=== PATIENT | male | born 1930 | race Caucasian/White ===

== ENCOUNTER 2017-03-28 18:59 | Inpatient (IN) | payer MEDICARE, OTHER ==
[~2017-03-28] VITALS: Ht 170.2 cm; Wt 74.5 kg
[~2017-03-28 18:59] MED LIST: CODEINE PO; DIAZ5TAB4 PO; PRED10TA PO
[2017-03-28] MEDS ORDERED: PANTOPRAZOLE 80 MG in SODIUM CHLORIDE 0.9% 50 ML IVPB ONE (19:25)
[2017-03-28] MEDS ORDERED: SODIUM CHLORIDE FLUSH 10ML SYR IVF ONE (19:30)
[2017-03-28 19:54] LABS: HEMATOCRIT 28.7 % (39.2-51.8); HEMOGLOBIN 9.5 g/dL (13.7-18.0); WHITE BLOOD COUNT 9.8 x10^3/uL (3.4-10)
[2017-03-28] MEDS ORDERED: ACET1TAB39 PO (19:57)
[2017-03-28] MEDS ORDERED: ASPI-650 PO (19:59)
[2017-03-28 20:13] LABS: BLOOD UREA NITROGEN 72 mg/dL (7-18)
[2017-03-28 20:18] LABS: IS PT STATUS REG ER OR PRE ER? YES
[2017-03-28 20:24] LABS: DIFF TOTAL CELLS COUNTED 100 CELL DIFF
[2017-03-28 20:34] LABS: ANISOCYTOSIS 1+; OVALOCYTES 1+; SCHISTOCYTES 1+; TARGET CELLS 1+; VERIFY COUNTS? YES
[2017-03-28 20:35] LABS: LARGE PLATELETS 1+
[2017-03-28] MEDS: PANTOPRAZOLE 80 MG in SODIUM CHLORIDE 0.9% 100 ML IV SCH (20:37)
[2017-03-28] MEDS ORDERED: ACETAMINOPHEN 325 MG TABLET PO PRN (21:30)
[2017-03-28] MEDS ORDERED: POLYETHYLENE GLYCOL 17 GM PACKET PO PRN (21:30)
[2017-03-28] MEDS ORDERED: DOCUSATE 100 MG CAPSULE PO PRN (21:30)
[2017-03-28] MEDS ORDERED: ONDANSETRON 2MG/ML, 2ML IVPush PRN (21:30)
[2017-03-28] MEDS ORDERED: CEFTRIAXONE PMX 1GM/50ML 50 ML ONE (21:35)
[2017-03-28] MEDS ORDERED: ACETAMINOPHEN 325 MG TABLET ONE (21:36)
[2017-03-28] MEDS: CEFTRIAXONE PMX 1GM/50ML 50 ML IV SCH (21:46)
[2017-03-28] MEDS: SODIUM CHLORIDE 0.9% 1,000 ML IV SCH (21:46)
[2017-03-29] MEDS: DOXYCYCLINE 100 MG in DEXTROSE 5% 250 ML IV SCH ×2 (00:04→11:38)
[2017-03-29 02:10] VITALS: BP 143/76
[2017-03-29] MEDS: NICOTINE 7 MG/24 HR PATCH.TD24 TD SCH ×2 (02:40→21:30)
[2017-03-29] MEDS: SODIUM CHLORIDE 0.9% 1,000 ML IV SCH (02:41)
[2017-03-29] MEDS: PANTOPRAZOLE 80 MG in SODIUM CHLORIDE 0.9% 100 ML IV SCH ×4 (02:44→21:54)
[2017-03-29 03:32] LABS: POTASSIUM,URINE RANDOM 74 mmol/L
[2017-03-29 05:43] LABS: HEMATOCRIT 26.9 % (39.2-51.8); HEMOGLOBIN 9.1 g/dL (13.7-18.0); WHITE BLOOD COUNT 9.7 x10^3/uL (3.4-10)
[2017-03-29 06:32] LABS: ASPARTATE AMINO TRANSFERASE 156 U/L (15-37); BLOOD UREA NITROGEN 71 mg/dL (7-18)
[2017-03-29 06:34] LABS: IS PT STATUS REG ER OR PRE ER? NO
[2017-03-29 08:36] VITALS: BP 107/60
[2017-03-29] MEDS ORDERED: hydrALAzine 20 MG/ML, 1ML IV PRN (09:00)
[2017-03-29] MEDS ORDERED: [UNRECOGNIZED DRUG - CODE] PO (13:16)
[2017-03-29] MEDS ORDERED: ACTI260C PO (13:16)
[2017-03-29] MEDS ORDERED: DOCU100C33 PO (13:16)
[2017-03-29] MEDS ORDERED: OXYC20TA42 PO (13:16)
[2017-03-29 14:20] VITALS: BP 125/76
[2017-03-29 21:46] VITALS: BP 127/71
[2017-03-29] MEDS: CEFTRIAXONE PMX 1GM/50ML 50 ML IV SCH (21:54)
[2017-03-29] MEDS: DOXYCYCLINE 100MG TABLET PO SCH (21:54)
[2017-03-29 22:12] VITALS: BP 142/76
[2017-03-30 01:59] VITALS: BP 137/71
[2017-03-30] MEDS: morphine SULFATE 10 MG/ML, 1ML IVPush PRN ×2 (02:07→05:28)
[2017-03-30 05:20] LABS: HEMOGLOBIN 9.1 g/dL (13.7-18.0); WHITE BLOOD COUNT 11.3 x10^3/uL (3.4-10)
[2017-03-30 05:49] LABS: ASPARTATE AMINO TRANSFERASE 119 U/L (15-37); BLOOD UREA NITROGEN 53 mg/dL (7-18)
[2017-03-30] MEDS: HYDROcodone/APAP 5/325 TABLET PO PRN ×3 (05:56→20:48)
[2017-03-30 06:03] LABS: DIFF TOTAL CELLS COUNTED 100 CELL DIFF
[2017-03-30 06:04] LABS: ANISOCYTOSIS 1+; VERIFY COUNTS? YES
[2017-03-30 06:08] LABS: OVALOCYTES 1+
[2017-03-30 06:10] LABS: TARGET CELLS 1+
[2017-03-30 06:12] LABS: LARGE PLATELETS 1+
[2017-03-30 07:19] VITALS: BP 136/83
[2017-03-30] MEDS: DOXYCYCLINE 100MG TABLET PO SCH ×2 (08:41→20:44)
[2017-03-30] MEDS: PANTOPRAZOLE 80 MG in SODIUM CHLORIDE 0.9% 100 ML IV SCH ×2 (08:41→19:49)
[2017-03-30 20:13] VITALS: BP 111/68
[2017-03-30] MEDS: NICOTINE 7 MG/24 HR PATCH.TD24 TD SCH (21:30)
[2017-03-30] MEDS ORDERED: ACETAMINOPHEN 325 MG TABLET PO PRN (21:30)
[2017-03-30] MEDS ORDERED: ONDANSETRON 2MG/ML, 2ML IVPush PRN (21:30)
[2017-03-30] MEDS ORDERED: POLYETHYLENE GLYCOL 17 GM PACKET PO PRN (21:30)
[2017-03-30] MEDS ORDERED: hydrALAzine 20 MG/ML, 1ML IV PRN (21:30)
[2017-03-30] MEDS: CEFTRIAXONE PMX 1GM/50ML 50 ML IV SCH (22:10)
[2017-03-31 01:31] VITALS: BP 128/69
[2017-03-31] MEDS: morphine SULFATE 10 MG/ML, 1ML IVPush PRN (01:35)
[2017-03-31 05:20] LABS: HEMATOCRIT 28.5 % (39.2-51.8); HEMOGLOBIN 9.6 g/dL (13.7-18.0)
[2017-03-31] MEDS: HYDROcodone/APAP 5/325 TABLET PO PRN ×2 (05:34→20:42)
[2017-03-31 05:37] LABS: BLOOD UREA NITROGEN 41 mg/dL (7-18)
[2017-03-31 07:11] VITALS: BP 147/65
[2017-03-31] MEDS: DOXYCYCLINE 100MG TABLET PO SCH ×2 (09:21→20:41)
[2017-03-31] MEDS ORDERED: TERBINAFINE CRM 1%, 15GM TP PRN (09:30)
[2017-03-31] MEDS: OMEPRAZOLE 20 MG CAPSULE.DR PO SCH ×2 (10:09→17:53)
[2017-03-31 14:21] VITALS: BP 134/71
[2017-03-31 15:23] LABS: BLOOD UREA NITROGEN 41 mg/dL (7-18)
[2017-03-31] MEDS ORDERED: MAGNESIUM SULFATE PMX 2GM/50ML 50 ML IV ONE (16:30)
[2017-03-31] MEDS ORDERED: POTASSIUM PHOSPHATE 44 MEQ in SODIUM CHLORIDE 0.9% 500 ML IV ONE (16:30)
[2017-03-31] MEDS: DEXTROSE 5% 1,000 ML IV SCH (16:32)
[2017-03-31 19:01] VITALS: BP 138/80
[2017-03-31] MEDS: NICOTINE 7 MG/24 HR PATCH.TD24 TD SCH (20:43)
[2017-03-31] MEDS: CEFTRIAXONE PMX 1GM/50ML 50 ML IV SCH (23:52)
[2017-04-01] MEDS: HYDROcodone/APAP 5/325 TABLET PO PRN ×4 (01:00→21:25)
[2017-04-01 01:01] VITALS: BP 127/74
[2017-04-01] MEDS: DEXTROSE 5% 1,000 ML IV SCH ×3 (01:07→21:27)
[2017-04-01 05:19] LABS: HEMATOCRIT 31.5 % (39.2-51.8); HEMOGLOBIN 10.5 g/dL (13.7-18.0); WHITE BLOOD COUNT 12.4 x10^3/uL (3.4-10)
[2017-04-01 05:40] LABS: ASPARTATE AMINO TRANSFERASE 56 U/L (15-37); BLOOD UREA NITROGEN 32 mg/dL (7-18)
[2017-04-01 07:03] VITALS: BP 134/77
[2017-04-01] MEDS ORDERED: EPINEPHRINE 1 MG/ML, 1ML ONE (07:33)
[2017-04-01] MEDS: OMEPRAZOLE 20 MG CAPSULE.DR PO SCH ×2 (09:00→17:59)
[2017-04-01] MEDS: DOXYCYCLINE 100MG TABLET PO SCH ×2 (09:00→21:25)
[2017-04-01 13:35] VITALS: BP 142/66
[2017-04-01] MEDS ORDERED: CEFD300C37 PO (18:53)
[2017-04-01] MEDS ORDERED: DOXY100C15 PO (18:53)
[2017-04-01 19:10] VITALS: BP 126/70
[2017-04-01] MEDS: NICOTINE 7 MG/24 HR PATCH.TD24 TD SCH (21:27)
[2017-04-01] MEDS: CEFTRIAXONE PMX 1GM/50ML 50 ML IV SCH (23:23)
[2017-04-02] MEDS: HYDROcodone/APAP 5/325 TABLET PO PRN ×3 (02:10→14:29)
[2017-04-02 02:23] VITALS: BP 131/60
[2017-04-02 07:16] VITALS: BP 131/64
[2017-04-02] MEDS: DEXTROSE 5% 1,000 ML IV SCH (07:30)
[2017-04-02] MEDS ORDERED: TRAM50TA2 PO (08:56)
[2017-04-02] MEDS ORDERED: OXYC10TA6 PO (08:59)
[2017-04-02] MEDS ORDERED: NICO-485 TD (09:03)
[2017-04-02] MEDS ORDERED: POLY17PO5 PO (09:03)
[2017-04-02] MEDS ORDERED: OXYC20TA42 PO (09:16)
[2017-04-02] MEDS: OMEPRAZOLE 20 MG CAPSULE.DR PO SCH (09:31)
[2017-04-02] MEDS: DOXYCYCLINE 100MG TABLET PO SCH (09:31)
[2017-04-02 15:00] VITALS: BP 114/53
== END 2017-04-02 16:49 | DRG 871 ==
LOC: ED 19:53 → SUATTDRO 20:59 → EDIP 21:03 → 5SO 03-29 01:51
PROVIDERS: ADMIT Family Medicine; ATTEND Internal Medicine
PROC: 0T9B70Z Drainage of Bladder with Drainage Device, Via Natural or Artificial Opening (ICD-10-PCS; principal; 2017-03-28)
DX: A41.9 Sepsis, unspecified organism (principal); E43 Unspecified severe protein-calorie malnutrition; J96.00 Acute respiratory failure, unspecified whether with hypoxia or hypercapnia; N17.0 Acute kidney failure with tubular necrosis; G93.41 Metabolic encephalopathy; K92.0 Hematemesis; J18.9 Pneumonia, unspecified organism; E86.0 Dehydration; K92.1 Melena; N39.0 Urinary tract infection, site not specified; D62 Acute posthemorrhagic anemia; Z68.25 Body mass index [BMI] 25.0-25.9, adult; F17.200 Nicotine dependence, unspecified, uncomplicated; M16.11 Unilateral primary osteoarthritis, right hip; Z85.46 Personal history of malignant neoplasm of prostate
CPT/HCPCS: 36415; 71010; 80048; 80053; 80061; 81001; 82040; 82436; 82570; 82962; 83605; 83735; 84100; 84133; 84300; 84439; 84443; 84484; 85014; 85018; 85025; 85610; 85730; 86677; 86850; 86900; 87040; 87086; 87324; 93005; 93306; 96365; J0171; J0696; J7060; J7070; C9113; J2270; J3475; J7030; J7040; J7512